=== PATIENT | male | born 1950 | race Caucasian/White ===

== ENCOUNTER → 2023-10-08 16:22 | Outpatient (REF) | payer MEDICARE, MEDICAID, SELFPAY | LOC: RAD 16:22 | PROVIDERS: ATTENDING PHYSICIAN Urology; FAMILY PHYSICIAN Family Medicine | DX: N20.0 Calculus of kidney (principal) | CPT/HCPCS: 74018 ==

== ENCOUNTER 2024-07-14 13:08 | Outpatient (RCR) | payer MEDICARE, MEDICAID, SELFPAY | END 2024-07-14 23:59 | disposition home or self-care (01) | LOC: RPT 13:08 | PROVIDERS: ATTENDING PHYSICIAN Family Medicine | DX: M25.551 Pain in right hip (principal); Z73.6 Limitation of activities due to disability | CPT/HCPCS: 97112; 97162 ==

== ENCOUNTER 2024-08-11 14:55 | Outpatient (RCR) | payer MEDICARE, MEDICAID, SELFPAY | END 2024-08-11 23:59 | disposition home or self-care (01) | LOC: RPT 14:55 | PROVIDERS: ATTENDING PHYSICIAN Family Medicine | DX: M25.551 Pain in right hip (principal); Z73.6 Limitation of activities due to disability | CPT/HCPCS: 97110; 97112; 97530 ==

== ENCOUNTER 2024-08-18 15:24 | Outpatient (RCR) | payer MEDICARE, MEDICAID, SELFPAY | END 2024-08-19 07:39 | disposition home or self-care (01) | LOC: RPT 15:24 | PROVIDERS: ATTENDING PHYSICIAN Family Medicine | DX: M25.551 Pain in right hip (principal); Z73.6 Limitation of activities due to disability; R26.89 Other abnormalities of gait and mobility; M62.81 Muscle weakness (generalized); Z96.641 Presence of right artificial hip joint | CPT/HCPCS: 97110; 97530 ==